=== PATIENT | female | born 1995 | race Caucasian/White ===

== ENCOUNTER → 2019-11-05 09:24 | Outpatient (BNVA) | payer MEDICAID, SELFPAY | PROVIDERS: Family Provider Family Medicine; PCP Family Medicine; Visit Provider Nurse Practitioner Women's Health | DX: O99.322 Drug use complicating pregnancy, second trimester (principal); O99.332 Smoking (tobacco) complicating pregnancy, second trimester; F32.9 Major depressive disorder, single episode, unspecified; Z14.1 Cystic fibrosis carrier; F12.90 Cannabis use, unspecified, uncomplicated; F17.210 Nicotine dependence, cigarettes, uncomplicated; F41.9 Anxiety disorder, unspecified; Z3A.12 12 weeks gestation of pregnancy | CPT/HCPCS: 80307; 81000 ==

== ENCOUNTER → 2019-11-14 08:55 | Outpatient (BNVA) | payer MEDICAID, SELFPAY | PROVIDERS: Family Provider Family Medicine; PCP Family Medicine; Visit Provider Obstetrics & Gynecology | DX: Z34.80 Encounter for supervision of other normal pregnancy, unspecified trimester (principal) | CPT/HCPCS: 81000; 86803 ==

== ENCOUNTER → 2019-11-29 13:03 | Outpatient (BNVA) | payer MEDICAID, SELFPAY | PROVIDERS: Family Provider Family Medicine; PCP Family Medicine; Visit Provider Nurse Practitioner Women's Health | DX: Z34.90 Encounter for supervision of normal pregnancy, unspecified, unspecified trimester (principal) | CPT/HCPCS: 81000 ==

== ENCOUNTER → 2019-12-30 14:49 | Outpatient (BNVA) | payer MEDICAID, SELFPAY | PROVIDERS: Family Provider Family Medicine; PCP Family Medicine; Visit Provider Obstetrics & Gynecology | DX: Z34.90 Encounter for supervision of normal pregnancy, unspecified, unspecified trimester (principal) | CPT/HCPCS: 76805 ==

== ENCOUNTER → 2020-01-02 08:11 | Outpatient (BNVA) | payer MEDICAID, SELFPAY | PROVIDERS: Family Provider Family Medicine; PCP Family Medicine; Visit Provider Obstetrics & Gynecology | DX: Z34.90 Encounter for supervision of normal pregnancy, unspecified, unspecified trimester (principal) | CPT/HCPCS: 81000 ==

== ENCOUNTER → 2020-01-24 13:58 | Outpatient (BNVA) | payer MEDICAID, SELFPAY | PROVIDERS: Family Provider Family Medicine; PCP Family Medicine; Visit Provider Obstetrics & Gynecology | DX: Z34.92 Encounter for supervision of normal pregnancy, unspecified, second trimester (principal) | CPT/HCPCS: 80307; 81000 ==

== ENCOUNTER → 2020-02-21 09:05 | Outpatient (BNVA) | payer MEDICAID, SELFPAY | PROVIDERS: Family Provider Family Medicine; PCP Family Medicine; Visit Provider Obstetrics & Gynecology | DX: Z34.80 Encounter for supervision of other normal pregnancy, unspecified trimester (principal) | CPT/HCPCS: 81000; 82950; 85027 ==

== ENCOUNTER → 2020-03-09 11:06 | Outpatient (BNVA) | payer BC, SELFPAY | PROVIDERS: Family Provider Family Medicine; PCP Family Medicine; Visit Provider Obstetrics & Gynecology | DX: N89.8 Other specified noninflammatory disorders of vagina (principal); B37.3 Candidiasis of vulva and vagina | CPT/HCPCS: 81000; 87210 ==

== ENCOUNTER → 2020-03-26 08:12 | Outpatient (BNVA) | payer BC, MEDICAID, SELFPAY | PROVIDERS: Family Provider Family Medicine; PCP Family Medicine; Visit Provider Obstetrics & Gynecology | DX: Z34.90 Encounter for supervision of normal pregnancy, unspecified, unspecified trimester (principal) | CPT/HCPCS: 81000 ==

== ENCOUNTER → 2020-04-09 07:50 | Outpatient (BNVA) | payer BC, MEDICAID, SELFPAY | PROVIDERS: Family Provider Family Medicine; PCP Family Medicine; Visit Provider Nurse Practitioner Women's Health | DX: Z34.90 Encounter for supervision of normal pregnancy, unspecified, unspecified trimester (principal) | CPT/HCPCS: 81000 ==

== ENCOUNTER → 2020-04-20 08:43 | Outpatient (BNVA) | payer BC, MEDICAID, SELFPAY ==
--- NOTE | 2020-04-21 12:22 | ANES.PREANE2 ---
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 Anesthetic Plan: ASA status: 2 Anesthesia: Regional (specify below) (epidural ) Risk of > 500 ml blood loss (7ml/kg in children): No PFSH Anesthesia PFSH: Medical History (Updated 04/20/20 @ 08:34 by Jas Alarcon MD) Cystic fibrosis carrier Surgical History History of tonsillectomy [place] teeth extracted Family History Grandmother Breast cancer Maternal great grandmother Ovarian cancer Maternal grandmother Hypertension Paternal grandmother Maternal grandmother Family/Other Uterine cancer Maternal great aunt Sister Family history of thyroid problem Family/Other Heart disease Nephew Father Hypertension Social History Additional social history: - Tobacco use: 1/2-1ppd; Quit in 09/2019 Alcohol use: Denies Drug use: Former marijuana; Quit 09/2019 Data Anesthesia Cardiac Studies: No Data to Display
== END ==
PROVIDERS: Family Provider Family Medicine; PCP Family Medicine; Visit Provider Obstetrics & Gynecology
DX: Z34.90 Encounter for supervision of normal pregnancy, unspecified, unspecified trimester (principal)
CPT/HCPCS: 81000; 87081

== ENCOUNTER → 2020-04-29 09:43 | Outpatient (BNVA) | payer BC, MEDICAID, SELFPAY | PROVIDERS: Family Provider Family Medicine; PCP Family Medicine; Visit Provider Obstetrics & Gynecology | DX: Z34.80 Encounter for supervision of other normal pregnancy, unspecified trimester (principal) | CPT/HCPCS: 81000 ==

== ENCOUNTER → 2020-05-04 09:07 | Outpatient (BNVA) | payer BC, SELFPAY | PROVIDERS: Family Provider Family Medicine; PCP Family Medicine; Visit Provider Obstetrics & Gynecology | DX: O99.340 Other mental disorders complicating pregnancy, unspecified trimester (principal); F32.9 Major depressive disorder, single episode, unspecified | CPT/HCPCS: 81000 ==

== ENCOUNTER 2020-05-09 20:39 | Outpatient (CLI) | payer BC, MEDICAID, SELFPAY ==
[2020-05-09 20:50] VITALS: TEMP 36.6
[2020-05-09 20:52] VITALS: BP 119/65; PULSE 81
[2020-05-09 21:07] VITALS: RESP 16; BMI 31.9
[2020-05-09 21:30] LABS: Nitrazine Paper, PH Negative
[2020-05-09 21:44] LABS: Actim Prom Negative
[2020-05-09 23:05] VITALS: RESP 15
== END 2020-05-09 23:12 | disposition home or self-care (01) ==
LOC: OPOB 20:40 → OBGYN 20:41
PROVIDERS: Family Provider Family Medicine; PCP Family Medicine; Visit Provider Obstetrics & Gynecology
DX: O26.899 Other specified pregnancy related conditions, unspecified trimester (principal); Z3A.00 Weeks of gestation of pregnancy not specified; N89.8 Other specified noninflammatory disorders of vagina
CPT/HCPCS: 59025; 83986; 84112; 99211

== ENCOUNTER → 2020-05-11 07:57 | Outpatient (BNVA) | payer BC, MEDICAID, SELFPAY | PROVIDERS: Family Provider Family Medicine; PCP Family Medicine; Visit Provider Obstetrics & Gynecology | DX: Z34.90 Encounter for supervision of normal pregnancy, unspecified, unspecified trimester (principal) | CPT/HCPCS: 81000; 87635 ==

== ENCOUNTER 2020-05-12 21:31 | Inpatient (IN) | payer BC, MEDICAID, SELFPAY ==
[2020-05-12] VITALS (24 sets, daily range): BP systolic 75–114; BP diastolic 43–70; PULSE 52–110; RESP 15–17; TEMP 36.6; O2SAT 97–100; BMI 32.1
[2020-05-12 22:22] LABS: Basophils # 0.1 10^3/uL (0.0-0.1); Basophils % 0.5 %; Eosinophils # 0.3 10^3/uL (0.0-0.8); Hematocrit 35.2 % (37.0-47.0); Hemoglobin 11.8 g/dL (11.5-15.3); Lymphocytes # 2.5 10^3/uL (0.8-4.8); Lymphocytes % 17.7 %; Mean Corpuscular HGB Conc 33.5 g/dL (30.0-36.0); Mean Corpuscular Hemoglobin 29.9 pg (28.0-34.0); Mean Corpuscular Volume 89.3 fL (81-99); Neutrophils # 10.06 10^3/uL (1.8-7.7); Neutrophils % 72.4 %; Nucleated Red Blood Cells % 0 %; Platelet Count 211 10^3/cmm (130-400); Red Blood Count 3.94 10^6/uL (4.1-5.3); Red Cell Distribution Width 12.1 % (12.1-15.1); White Blood Count 13.9 10^3/uL (4.0-10.0)
[2020-05-12] MEDS: lactated ringers 1,000 ML 999 ML IV (22:30)
--- NOTE | 2020-05-12 23:28 | P.ANESASSM_ITS ---
Pre-Anesthetic Assessment Pre-Anesthetic Assessment: Height/Weight: Height 1.68 m Weight 90.265 kg Temp Pulse BP Pulse Ox 97.9 F 82 103/60 99 05/12/20 19:23 05/12/20 23:25 05/12/20 23:25 05/12/20 23:25 Preop Diagnosis: IUP Proposed Procedure: JANETTE Was Beta Andrea taken within 24 hours: N/A Last intake: 1700 Social: Social History: Tobacco and No alcohol Exam: Pre-Anes Outpt Exam: alert, oriented x 3, clear to auscultation bilaterally and regular rate & rhythm Airway: Submandibular: WNL Cervical ROM: WNL MP: 2 Dentition: Full History/ROS: No significant history except as noted and No significant complaints CV/HEM: CV/HEM: None reported : : None reported Hepatic: Hepatic: None reported GI: GI: None reported Metabolic: Metabolic: None reported Musc/skel: Musc/skel: None reported Neuropsych: Neuropsych: None reported Anesthetic Plan: ASA status: 2 Anesthesia: Anesthesia Evaluation and Regional (specify below) Risk of > 500 ml blood loss (7ml/kg in children): No PFSH Anesthesia PFSH: Medical History (Updated 04/20/20 @ 08:34 by Jas Alarcon MD) Cystic fibrosis carrier Surgical History History of tonsillectomy [place] teeth extracted Family History Grandmother Breast cancer Maternal great grandmother Ovarian cancer Maternal grandmother Hypertension Paternal grandmother Maternal grandmother Family/Other Uterine cancer Maternal great aunt Sister Family history of thyroid problem Family/Other Heart disease Nephew Father Hypertension Social History Additional social history: - Tobacco use: 1/2-1ppd; Quit in 09/2019 Alcohol use: Denies Drug use: Former marijuana; Quit 09/2019 Female Reproductive History: : 2 Data Anesthesia CBC & Chem 7: 05/12/20 21:45 Other Labs: Laboratory Results - last 48 hr 05/12/20 21:45 WBC 13.9 H RBC 3.94 L Hgb 11.8 Hct 35.2 L MCV 89.3 MCH 29.9 MCHC 33.5 RDW 12.1 Plt Count 211 MPV 11.0 H Neut % (Auto) 72.4 Lymph % (Auto) 17.7 [place] % (Auto) 7.0 Eos % (Auto) 2.0 Baso % (Auto) 0.5 Neut # (Auto) 10.06 H Lymph # (Auto) 2.5 [place] # (Auto) 1.0 H Eos # (Auto) 0.3 Baso # (Auto) 0.1 Nucleated RBC % (auto) 0 Nucleated RBCs # 0.0 Cardiac Studies: No Data to Display
[2020-05-12] MEDS: dextrose 5%-lactated ringers 1,000 ML 125 ML IV (23:29)
--- NOTE | 2020-05-12 23:30 | ANES.PROC ---
Anesthesia Procedures Procedure/Date: 05/12/20 Epidural: Time Out Performed: Yes Consents Signed: Procedure Consent Consent: requested by attending/covering physician, from patient, risks and benefits reviewed and patient agrees to proceed Lumbar Level: L2-L3 Epidural position: sitting Epidural procedure: sterile prep of area, 1% lidocaine to numb the area, 18 g needle, neg for paresthesia, test dose given, 1.5% xylocaine 1:200k epi, 0.2% Ropivacaine bolus ml (5 cc Ropiv and 100 mcg Fentenyl bolus), no systemic response, sterile dressing applied, L.U.D. no apparent complications and 0.2% Ropiavacaine @ mls/hr (13 cc/hour) Additional Comments: JOSEPH at 6cm. Cath passed 2 cm into space. 5 cc test dose given
[2020-05-12 23:42] LABS: Amphetamines Screen Urine Negative (Negative); Barbiturates Screen Urine Negative (Negative); Benzodiazepines Screen Urine Negative (Negative); Cocaine Screen Urine Negative (Negative); Opiate Screen Urine Negative (Negative); PCP Screen Urine Negative (Negative); THC Screen Urine Positive (Negative)
[2020-05-12] MEDS: ondansetron 2 mg/ML SDV 2 mL 4 MG IVP (23:54)
[2020-05-13] VITALS (55 sets, daily range): BP systolic 87–192; BP diastolic 50–128; PULSE 56–91; RESP 15–63; TEMP 36.4–36.8; O2SAT 90–100
[2020-05-13] MEDS: oxytocin 30 UNIT/500 ML BAG 600 UNIT IV (01:09)
--- NOTE | 2020-05-13 01:31 | PM.DELIVERY ---
Delivery Note: Date of delivery: May 13, 2020 Pre-delivery diagnoses: 1. Term at 39-5/7 weeks gestation 2. Mental disorder (depression and anxiety) in third trimester 3. Tobacco use (smoking) during in third trimester 4. Positive cystic fibrosis carrier status in the mother in 5. Meconium fluid Post-delivery diagnoses: 1. Term at 39-5/7 weeks gestation - delivered 2. Mental disorder (depression and anxiety) - delivered 3. Tobacco use (smoking) during - delivered 4. Positive cystic fibrosis carrier status in the mother - delivered 5. Meconium fluid - delivered. 6. Viable female Procedure: Spontaneous vaginal delivery Op report anesthesia: Epidural Delivering Physician: Jas Alarcon MD Estimated blood loss (mL): 200 Pre-Delivery Course: Patient is a 24-year-old female 2, para 1-0-0-1 with an LMP of 08/09/2019 and an EDC of 05/15/2020 based on LMP and consistent with a 6-week ultrasound, which placed her at 39-4/7 weeks gestation at the time of admission. Her care has been mainly provided by Dr. Jas Alarcon at [facility]. Her was complicated by depression and anxiety prepregnancy and during , tobacco use during , marijuana use during , and being a carrier of cystic fibrosis. She presented to labor and delivery at 19:15 on 05/12/2020 complaining of contractions. She stated that the contractions had started at approximately 14:00 today. On admission she was martínez every 1 to 3 minutes. She was 75% effaced and 2 cm dilated. Approximately 2 hours later she was noted to be 80% effaced and 4 cm dilated. She was admitted to the hospital at that time. Baby was reassuring on monitoring. She continued to contract and progressed through the late evening. She became more uncomfortable and had epidural placed at 23:38. Following epidural placement she became hypotensive with blood pressures in the 70s over 40s. During this time she had a 5-minute deceleration to the 70s which started at 23:48. Fluid bolus and ephedrine was given due to the low blood pressure. The low blood pressure was thought to be the cause for the deceleration. Following this baby rapidly improved with resumption of a reactive tracing. Shortly after the deceleration at 00:04 she had spontaneous rupture of membranes with meconium fluid present. She was noted to be 6 cm dilated at the time. She progressed to complete dilation by 00:41. Delivery: She started pushing at 00:56 and delivered at 01:05 as a spontaneous vaginal delivery of an occiput anterior female over an intact perineum under epidural anesthesia. Following delivery of the infant's head, no nuchal cords were noted. The shoulders delivered at approximately 1-1/2 minutes after delivery of the head with the next contraction. During this time, Lauren maneuver and suprapubic pressure was applied. I do not believe she truly had a shoulder dystocia, I think it was just the lack of a contraction that led to the delay in the delivery of the shoulders. No nuchal cords were present. The shoulders delivered transverse to the pelvis. Cord was clamped and cut and the baby was taken directly to the warmer where mouth and nose were suctioned initially with bulb suction and then DeLee suctioning. Baby was stimulated and started crying. Please see nurses notes for further documentation of baby care. Pitocin bolus was started. Placenta delivered intact by simple expression at 01:09. Cervix and vagina were palpated and noted to be intact. The labia were inspected and noted to be intact except for superficial abrasions which required no repair. Bruising was present. FINDINGS 1. Viable female weighing 7 lbs 11 oz (3490 g) with a length of 20-1/2 inches and Apgars of 5 at 1 minute and 9 at 5 minutes. 2. Three-vessel cord with no loops of nuchal cord noted. 3. Normal-appearing placenta with an eccentric cord insertion. Post-Delivery Status: Mother and infant were left to recover in satisfactory condition. Patient had indicated during the that she wanted to have a sterilization performed. Medicaid consent form had been signed on 02/21/2020. Following delivery, she was still adamant that she wanted to have a sterilization done. However, patient did not have Covid testing done until the evening of 05/11 and results are not currently present. I discussed with patient that without the results, she would not be having a sterilization done. Per patient request, she is being kept n.p.o. at this time in the hopes that results will be back later this morning. 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
--- NOTE | 2020-05-13 02:02 | P.HPUD_ITS ---
Surgery/Procedure H&P Update DATE OF PROCEDURE: May 13, 2020 DATE H&P PERFORMED: 05/11/20 H&P UPDATE INFORMATION: I have reviewed H&P completed within last 30 days, Changes to prior documentation as noted here and H&P is in [facility] EMR on date indicated CHANGES TO PREVIOUS DOCUMENTATION: Patient presented to Labor and Delivery on 05/12/20 in labor. PREOP DIAGNOSIS: IUP PLANNED PROCEDURE: Vaginal delivery
[2020-05-13] MEDS: ibuprofen 800 mg tablet PO ×3 (09:11→20:43)
[2020-05-13] MEDS: docusate sodium 100 mg Capsule PO ×2 (09:11→17:57)
[2020-05-13] MEDS: fluoxetine 10 mg Capsule PO (09:12)
[2020-05-13] MEDS: sodium chloride 0.9% 1,000 ML 30 ML IV (13:00)
--- NOTE | 2020-05-13 13:27 | P.ANESASSM_ITS ---
Pre-Anesthetic Assessment Pre-Anesthetic Assessment: Height/Weight: Height 1.68 m Weight 90.265 kg Temp Pulse Resp BP Pulse Ox 98.3 F 70 18 99/62 98 05/13/20 12:08 05/13/20 12:08 05/13/20 12:08 05/13/20 12:08 05/13/20 12:08 Preop Diagnosis: desired sterilization Proposed Procedure: Operation Date: 05/13/20 12:00 Proposed Procedures p Bilateral Tubal Ligation(Bilateral) - Jas Alarcon MD Familial anesthetic complications: none Was Beta Andrea taken within 24 hours: N/A Last intake: Intake Last Liquid Date 05/12/20 Last Liquid Time 17:00 Last Solid Date 05/12/20 Last Solid Time 17:00 Social: Social History: No tobacco Exam: Pre-Anes Outpt Exam: alert, oriented x 3 and clear to auscultation dori aterally Airway: Submandibular: WNL Cervical ROM: WNL MP: 1 Dentition: Full History/ROS: No significant history except as noted Pulmonary: Pulmonary: None reported CV/HEM: CV/HEM: None reported : : None reported Hepatic: Hepatic: None reported GI: GI: None reported Metabolic: Metabolic: None reported Musc/skel: Musc/skel: None reported Neuropsych: Neuropsych: None reported Anesthetic Plan: ASA status: 2 Anesthesia: Anesthesia Evaluation and General Other: breast feeding 12 hours post delivery RSI Meds/Allergies Current Medications: Current Medications Generic Name Dose Route Start Last Admin Trade Name Freq PRN Reason Stop Dose Admin Docusate Sodium 100 mg 05/13/20 09:00 05/13/20 09:11 Docusate Sodium 100 Mg Capsule PO 100 mg BID CHIDI Administration Fluoxetine HCl 10 mg 05/13/20 09:00 05/13/20 09:12 Fluoxetine 10 Mg Capsule PO 10 mg DAILY CHIDI Administration Sodium Chloride 1,000 mls @ 30 ml s/hr 05/13/20 13:00 05/13/20 13:00 Sodium Chloride 0.9% IV 30 mls/hr .Q24H CHIDI Administration Ibuprofen 800 mg 05/13/20 09:00 05/13/20 09:11 Ibuprofen 800 Mg Tablet PO 800 mg TID CHIDI Administration PFSH Anesthesia PFSH: Medical History Cystic fibrosis carrier Surgical History History of tonsillectomy [place] teeth extracted Family History Grandmother Breast cancer Maternal great grandmother Ovarian cancer Maternal grandmother Hypertension Paternal grandmother Maternal grandmother Family/Other Uterine cancer Maternal great aunt Sister Family history of thyroid problem Family/Other Heart disease Nephew Father Hypertension Social History Additional social history: - Tobacco use: 1/2-1ppd; Quit in 09/2019 Alcohol use: Denies Drug use: Former marijuana; Quit 09/2019 Female Reproductive History: : 2 Data Anesthesia CBC & Chem 7: 05/12/20 21:45 Other Labs: Laboratory Results - last 48 hr 05/12/20 05/12/20 21:45 22:35 WBC 13.9 H RBC 3.94 L Hgb 11.8 Hct 35.2 L MCV 89.3 MCH 29.9 MCHC 33.5 RDW 12.1 Plt Count 211 MPV 11.0 H Neut % (Auto) 72.4 Lymph % (Auto) 17.7 [place] % (Auto) 7.0 Eos % (Auto) 2.0 Baso % (Auto) 0.5 Neut # (Auto) 10.06 H Lymph # (Auto) 2.5 [place] # (Auto) 1.0 H Eos # (Auto) 0.3 Baso # (Auto) 0.1 Nucleated RBC % (auto) 0 Nucleated RBCs # 0.0 Urine Opiates Screen Negative Ur Barbiturates Screen Negative Ur Phencyclidine Scrn Negative Ur Amphetamines Screen Negative U Benzodiazepines Scrn Negative Urine Cocaine Screen Negative U Marijuana (THC) Screen Positive H Cardiac Studies: No Data to Display
--- NOTE | 2020-05-13 13:41 | P.OP_ITS ---
Operative Report Date of procedure: May 13, 2020 Pre-op Diagnosis: desired sterilization Post-op Diagnosis: Undesired fertility Procedure Done: bilateral partial salpingectomy Specimens removed/disposition: Portions of right and left fallopian tubes Surgeon: Jas Alarcon Environmental Health And Safety Leader: None Anesthesia: General Estimated blood loss (mL): 5 IV fluids (mL): 600 Complications: None Findings: Normal-appearing tubes and ovaries. Brief History: Patient is a 24-year-old female 2, now para 2 with an LMP of 08/09/2019 who is status post vaginal delivery. During the , she has stated that she did not want any further children wanted to have her tubes tied. Medicaid consent form has been signed on 02/21/2020. This morning, permanence of sterilization was reviewed with the patient. Risks and failure rates including risk of ectopic was reviewed. Questions were answered. She still wished to proceed with sterilization. Procedure: The patient was taken to the operating room where general anesthesia was obtained. She was prepped and draped in the usual sterile fashion in a dorsal supine position. The infraumbilical region was injected with 1% lidocaine with epinephrine. An infraumbilical skin incision was made with the knife and dissection carried down to the fascia bluntly. The fascia was grasped with hemostats and incision made with the knife. Peritoneum was bluntly entered. The peritoneal and fascial incision was extended with Barr scissors. [place] retractors were inserted. The left fallopian tube was identified, brought to the incision, and grasped with a Kistler clamp. It was followed to the fimbriated end. Approximately midway along the tube, a window was made in the underlying mesosalpinx with electrocautery. The segment was tied proximally and distally with 0 plain suture. The intervening segment was excised and the ends cauterized with electrocautery. The tube was noted to be hemostatic. The right fallopian tube was identified, brought to the incision, and grasped with a Kistler clamp. It was followed to the fimbriated end. Approximately midway along the tube, a window was made in the underlying mesosalpinx with electrocautery. The segment was tied proximally and distally with 0 plain suture. The intervening segment was excised and the ends were cauterized with electrocautery. Both tubal areas were noted to be hemostatic. The peritoneum and fascia were closed as a single layer in a running fashion using 0 Vicryl suture. The subcutaneous layer was reapproximated using 4-0 Vicryl suture in a running fashion. The skin was reapproximated using 4-0 Vicryl suture in a subcuticular fashion. Skin glue was applied. Patient tolerated the procedure well. Sponge and needle counts were correct. DRAINS: None POSTOPERATIVE STATUS: Patient was transferred to recovery room in satisfactory condition.
--- NOTE | 2020-05-13 14:03 | SUR.PHASEI ---
PT AWAKE ALERT DENIES PAIN AND NAUSEA , PT TAKING ICE CHIPS VSS ABD SITE D/I PT ON RA, C/O OF (SCRATCHY THROAT) PT ASKING TO SEE REPORT CALLED TO FLOOR AND PT TO OB PER CART MOVED SELF TO BED WITHOUT ASSIST, IN ROOM.
--- NOTE | 2020-05-13 14:54 | ANE.PACU2 ---
Inpatient post-anesthesia follow up: Airway intact: Yes Vital signs: Temperature 97.5 F Pulse Rate 61 Respiratory Rate 18 Blood Pressure 112/74 Pulse Oximetry 97 Oxygen Delivery Me thod Room Air Oxygen Flow Rate 8 Fraction of Inspir ed Oxygen Hydration adequate: Yes Nausea and vomiting: No Pain level: 2 Mental status: Baseline
[2020-05-13 18:39] LABS: Hemoglobin 11.4 g/dL (11.5-15.3); Mean Corpuscular HGB Conc 32.6 g/dL (30.0-36.0); Mean Corpuscular Hemoglobin 29.5 pg (28.0-34.0); Mean Corpuscular Volume 90.7 fL (81-99); Platelet Count 190 10^3/cmm (130-400); Red Blood Count 3.86 10^6/uL (4.1-5.3); Red Cell Distribution Width 12.5 % (12.1-15.1); White Blood Count 12.1 10^3/uL (4.0-10.0)
[2020-05-14] MEDS: acetaminophen 325 mg Tablet 650 MG PO (03:16)
[2020-05-14 05:21] VITALS: BP 135/70; PULSE 73; RESP 16
--- NOTE | 2020-05-14 08:05 | P.DS_ITS ---
Discharge Providers NUCLEAR SUPERVISING OPERATOR Date of Admission: 05/12/20 21:31 Date of Discharge: 05/14/20 Attending Provider at Admission: Jas Alarcon MD Attending Provider at Discharge: Jas Alarcon MD Primary NUCLEAR SUPERVISING OPERATOR: Jas Alarcon MD Primary Care Provider: Macario Mesa Diagnoses at Discharge Discharge Diagnosis (1) Term delivered: Status: Acute (2) Mental disorder in , delivered: Status: Acute Reason for Visit Reason for Visit: contractions Hospital Course Hospital Course Patient is a 24-year-old female, 2, now para 2-0-0-2 with an LMP of 08/09/2019 and an EDC of 05/15/2020 based on LMP and consistent with a 6-week ultrasound. She was at 39-4/7 weeks gestation at the time of admission. She had presented to labor and delivery on 05/12/2020 at 19:15 with complaint of contractions. She was found to be in labor. She became more uncomfortable and had epidural placed. She progressed to complete dilation by 00:41 on 05/13/2020. She started pushing at 00:56 and delivered at 01:05 as a spontaneous vaginal delivery of an occiput anterior female infant over an intact perineum under epidural anesthesia. Baby weighed 7 pounds 11 ounces (3490 g) with a length of 20-1/2 inches and Apgars of 5 at 1 minute and 9 at 5 minutes. Mother and infant did well following delivery. Patient had requested during to have a sterilization done. Following delivery she was still adamant that she did not want any further children and wanted to proceed with sterilization. Medicaid consent form has been signed on 02/21/2020. She had a sterilization performed later in the day on the day of delivery. Day 1 Patient denies problems or concerns. She states she is uncomfortable but did not want any other stronger pain medications at this time. She has been taking Tylenol and ibuprofen. She denied any lightheadedness or dizziness with ambulation. She denied any shortness of breath or chest pains. She reported tolerating a regular diet without nausea or vomiting. She denied problems with urination. She states that her bleeding has slowed. She is breast-feeding. She would like to be released to go home. Physical exam: See below Plan Discharge to home. Discharge instructions discussed with patient. Patient was encouraged to use the stronger pain medication if needed. She was instructed to follow-up in the office in 2 and 6 weeks following delivery. She has been continued on the fluoxetine and vitamins. Information Peripartum Data: Infant Delivery Method: Vaginal Laceration description: None complications: none Additional Peripartum Information: Had tubal ligation : 1: Gender: Female Disposition of : home Additional [place] Information: Viable female weighing 7 lbs 11 oz (3490 g) with a length of 20-1/2 inches and Apgars of 5 at 1 minute and 9 at 5 minutes. Physical Exam Const: COMMON NORMALS: no acute distress, average body habitus, alert and well nourished GENERAL APPEARANCE: well developed ORIENTATION/CONSCIOUSNESS: Yes oriented to person, Yes oriented to place and Yes oriented to time Resp: COMMON NORMALS: normal respiratory effort and clear to auscultation bilaterally AUSCULTATION: clear to auscultation bilaterally Cardio: COMMON NORMALS: regular rate, regular rhythm, No gallops present (Cardio) and No rub (Cardio) RATE: regular rate RHYTHM: regular rhythm GI: COMMON NORMALS: Soft to palpation, No hepatosplenomegaly present and no masses (Except for uterus) INSPECTION: Yes incision (Well approximated. Bruising present.) AUSCULTATION: Yes normoactive bowel sounds PALPATION: Yes Soft to palpation, Yes Tenderness to palpation present (GI) (Periumbilical and lateral aspect of the right and left lower quadrants), Yes No hepatosplenomegaly present and No Hernia present : EXTERNAL FEMALE EXAM: No Hernia present Neuro: SENSORIUM/ORIENTATION: Yes alert, Yes oriented to person, Yes oriented to place and Yes oriented to time Psych: COMMON NORMALS: normal affect MOOD & AFFECT: Yes euthymic mood Discharge Data Data Completed and Pending: Pending at discharge Category Date Time Status Pathology: Surgic al [PTH] Routine Pth 05/13/20 13:35 Ordered Labs from last 24 hours 05/13/20 18:10 WBC 12.1 H RBC 3.86 L Hgb 11.4 L Hct 35.0 L MCV 90.7 MCH 29.5 MCHC 32.6 RDW 12.5 Plt Count 190 MPV 11.0 H Vitals: Last Vital Signs Temp 98.3 F 05/13/20 21:57 Pulse 73 05/14/20 05:21 Resp 16 03/11/21 05:21 BP 135/70 05/14/20 05:21 Pulse Ox 95 05/13/20 21:57 Discharge Plan Discharge Patient Disposition: Home Condition: Stable Prescriptions: New hydrocodone-acetaminophen 5-325 mg Tablet 1 - 2 tab PO Q6H PRN (Reason: Moderate To Severe Pain) Qty: 20 RF: 0 ibuprofen 800 mg Tablet 800 mg PO TID PRN (Reason: pain) Qty: 30 RF: 0 Continued prenat.vits,raymond,[id number] Tablet 1 tab PO DAILY RF: 0 fluoxetine 10 mg capsule 10 mg PO DAILY RF: 0 Discharge Orders: Discharge Order (Routine); Ordered 05/14/20 Ordered By: Jas Alarcon Referrals: Jas Alarcon MD [Physician] - Discharge Diet: Regular Discharge Activity: Limit activity as instructed Patient Instructions: OB Vaginal Deliveries - [facility] Activity Restrictions/Additional Instructions: May use [id number] stool softeners as needed Discharge Attestations NUCLEAR SUPERVISING OPERATOR Time Spent in Discharge Care*: less than 30 min Status at Discharge: Cognitive status at discharge: cognitively intact , Behavioral status at discharge: cooperative , Functional status at discharge: independent ambulation Coding Level of Care Code Acute Adult Services Librarian for Chg Fwd Diagnoses Term delivered O80 Mental disorder in , delivered O99.344
[2020-05-14] MEDS: docusate sodium 100 mg Capsule PO (08:08)
[2020-05-14] MEDS: HYDROcodone-acetaminophen 5-325 mg Tablet PO (08:08)
[2020-05-14] MEDS: ibuprofen 800 mg tablet PO (08:08)
[2020-05-14 09:35] VITALS: BP 113/71; PULSE 62; RESP 16; TEMP 36.7; O2SAT 98
== END 2020-05-14 09:45 | disposition home or self-care (01) | DRG 797 ==
LOC: OBGYN 05-13 07:33 → OPOB 05-13 08:23
PROVIDERS: Admitting Provider Obstetrics & Gynecology; Family Provider Family Medicine; PCP Family Medicine; Visit Provider Obstetrics & Gynecology
PROC: 10E0XZZ Delivery of Products of Conception, External Approach (ICD-10-PCS; CPT 58605; principal; 2020-05-13 12:00)
DX: O99.324 Drug use complicating childbirth (principal); O99.834 Other infection carrier state complicating childbirth; Z37.0 Single live birth; O99.334 Smoking (tobacco) complicating childbirth; F12.90 Cannabis use, unspecified, uncomplicated; Z22.8 Carrier of other infectious diseases; O77.0 Labor and delivery complicated by meconium in amniotic fluid; Z3A.39 39 weeks gestation of pregnancy; Z30.2 Encounter for sterilization; O26.53 Maternal hypotension syndrome, third trimester; O76 Abnormality in fetal heart rate and rhythm complicating labor and delivery
CPT/HCPCS: 36415; 59409; 80306; 85025; 85027; 88302; 98960; J2405; J2795; J3010; J7030

== ENCOUNTER 2021-06-28 16:26 | Emergency (ER) | payer BC, MEDICAID, SELFPAY ==
[2021-06-28 16:32] VITALS: BP 138/91; PULSE 109; RESP 16; TEMP 36.7; O2SAT 97; BMI 25.2
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
[2021-06-28 17:53] VITALS: BP 135/75; PULSE 92; RESP 16; TEMP 36.7; O2SAT 98
== END 2021-06-28 17:58 | disposition home or self-care (01) ==
PROVIDERS: Emergency Provider Physician Assistant; PCP Family Medicine
DX: L08.9 Local infection of the skin and subcutaneous tissue, unspecified (principal); B95.8 Unspecified staphylococcus as the cause of diseases classified elsewhere; Z87.891 Personal history of nicotine dependence
CPT/HCPCS: 99281